=== PATIENT | female | born 1945 | race Caucasian/White ===

== ENCOUNTER → 2018-05-06 | Outpatient (CLI) | payer MEDICARE, OTHER ==
--- NOTE | 2018-05-06 11:32 | RAD ---
EXAM: Chest, 2 views. HISTORY: Cough. Dyspnea. COMPARISON: None. FINDINGS: Frontal and lateral views of the chest are obtained. There is no infiltrate, pleural effusion or pneumothorax. The heart is normal in size. There is a moderate hiatal hernia. IMPRESSION: No acute pulmonary finding. Electronically signed by: Kandace Tinoco MD (05/06/2018 11:28 AM) [id number]
--- NOTE | 2018-05-06 16:33 | RAD ---
DATE: 05/06/2018 EXAM: MAMMO CHERIE SCREENING BILATERAL HISTORY: Routine screening COMPARISON: 10/19/2014 This study was interpreted with the benefit of Computerized Aided Detection (CAD). The breast parenchyma is heterogeneously dense, which could reduce sensitivity of mammography. Breast parenchyma level C. FINDINGS: 2-D and 3-D tomosynthesis imaging was performed in CC and MLO projections. There is a cluster of microcalcifications in the posterolateral aspect of the right breast which appears to be related to a small elongated ill-defined breast opacity. These calcifications have progressed since previous studies. No other new or enlarging breast densities are seen. Stable benign-appearing lymph node type densities are present in the axillary regions. IMPRESSION: Clustered right breast microcalcifications as described above. Diagnostic mammograms to include spot compression and straight mediolateral views, probably followed by targeted breast ultrasound is suggested for further evaluation. BI-RADS CATEGORY: 0 INCOMPLETE: NEEDS ADDITIONAL IMAGING EVALUATION AND/OR PRIOR MAMMOGRAMS FOR COMPARISON. RECOMMENDED FOLLOW-UP: ADD ADDITIONAL IMAGING PQRS compliance statement: Patient information was entered into a reminder system with a target due date for the next mammogram. Mammography is a sensitive method for finding small breast cancers, but it does not detect them all and is not a substitute for careful clinical examination. A negative mammogram does not negate a clinically suspicious finding and should not result in delay in biopsying a clinically suspicious abnormality. "Our facility is accredited by the [employer] Mammography Program."
== END | disposition home or self-care (01) ==
LOC: MAMMO 10:45
PROVIDERS: ATTEND Family Medicine
DX: Z12.31 Encounter for screening mammogram for malignant neoplasm of breast (principal); K44.9 Diaphragmatic hernia without obstruction or gangrene
CPT/HCPCS: 71046; 77063; 77067

== ENCOUNTER → 2018-05-12 | Outpatient (CLI) | payer MEDICARE, OTHER ==
--- NOTE | 2018-05-12 15:48 | RAD ---
DATE: 05/12/2018 EXAM: DIGITAL DIAGNOSTIC RT, BREAST RIGHT HISTORY: Suspicious screening study COMPARISON: 05/06/2018, 10/19/2014 This study was interpreted with the benefit of Computerized Aided Detection (CAD). The breast parenchyma is heterogeneously dense, which could reduce sensitivity of mammography. Breast parenchyma level C. FINDINGS: Additional views of the right breast again demonstrate a cluster of microcalcifications related to an elongated density in the posterolateral aspect of the right breast at approximately the 10:00 location. The calcifications are pleomorphic with multiple irregular granular type calcifications as well as several coarser calcifications. The underlying soft tissue opacity measures approximately 5 x 15 mm. Right breast ultrasound, 05/12/2018: A targeted ultrasound exam of the upper outer quadrant of the right breast was performed. The nodule with calcifications seen on the mammograms could not be visualized sonographically. No mass or abnormal fluid collection was identified in the upper outer quadrant. IMPRESSION: Suspicious right breast microcalcifications which appear to be related to a small nodule, with no sonographic correlated evident. Stereotactic biopsy is suggested for further evaluation. Note: The biochemistry technologist notified the patient of the recommendation for biopsy at the time of the exam. The patient will follow-up with the ordering physician. BI-RADS CATEGORY: 4 SUSPICIOUS ABNORMALITY- BIOPSY SHOULD BE CONSIDERED RECOMMENDED FOLLOW-UP: BIO BIOPSY RECOMMENDED PQRS compliance statement: Patient information was entered into a reminder system with a target due date for the next mammogram. Mammography is a sensitive method for finding small breast cancers, but it does not detect them all and is not a substitute for careful clinical examination. A negative mammogram does not negate a clinically suspicious finding and should not result in delay in biopsying a clinically suspicious abnormality. "Our facility is accredited by the [employer] Mammography Program."
== END | disposition home or self-care (01) ==
LOC: MAMMO 13:53
PROVIDERS: ATTEND Family Medicine
DX: R92.8 Other abnormal and inconclusive findings on diagnostic imaging of breast (principal)
CPT/HCPCS: 76641; 77065

== ENCOUNTER → 2018-07-01 | Outpatient (CLI) | payer MEDICARE ==
[2018-07-02 16:24] LABS: FREE T4 0.92 ng/dL (0.76-1.46); THYROID STIM HORMONE (TSH) 2.017 uIU/mL (0.358-3.740)
== END | disposition home or self-care (01) ==
LOC: LAB 13:05
PROVIDERS: ATTEND Otolaryngology
DX: E04.1 Nontoxic single thyroid nodule (principal)
CPT/HCPCS: 84439; 84443

== ENCOUNTER → 2021-01-31 | Outpatient (CLI) | payer MEDICARE ==
[~2021-01-31] MED LIST: IOHEXOL 300 MG/ML 75 ML VIAL. IV ONE
--- NOTE | 2021-02-01 10:02 | RAD ---
CT THORAX W History: Lung nodules, reactive airway disease, productive cough, hemoptysis. Comparison: CT chest 06/23/2018. Technique: CT of the chest with intravenous contrast. Findings: Pulmonary arteries: Normal caliber. No large or central pulmonary embolism. Aorta and great vessels: No aneurysm of the aortic arch or thoracic aorta is seen. Mild aortic athero sclerotic calcification. Tortuous proximal segments of the great vessels. Thyroid: No significant abnormalities. Mediastinum and ame: No mediastinal masses or adenopathy is seen. Esophagus: The visualized esophagus is normal. Heart: The heart is normal in size. There is no pericardial effusion. No significant coronary artery calcification. Trachea: The visualized tracheobronchial tree is normal. Lungs: No airspace consolidation. Stable right lower lobe pulmonary nodules measuring 4 mm (axial noman ge 60 and axial image 65). Pleural space: There is no pneumothorax or pleural effusion. Upper abdomen: Redemonstrated benign hepatic cysts. 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 Osseous structures and soft tissues: Degenerative changes of the spine. Mild retrolisthesis of T12 on L1. Impression: 1. No significant lung abnormality. 2. Stable small right lower lobe pulmonary nodules. No follow-up required. 3. Incidental abdominal findings including stable splenic artery aneurysm measuring 1.8 cm and 3.2 c m duodenal diverticulum. ------ Exposure: One or more of the following individualized dose reduction techniques were utilized for thi s examination: 1. Automated exposure control 2. Adjustment of the mA and/or kV according to patient size 3. Use of iterative reconstruction technique. Electronically signed by: Gordon Gooden MD (02/01/2021 9:59 AM) [facility]
== END ==
LOC: CT 12:38
PROVIDERS: ATTEND Internal Medicine Pulmonary Disease
DX: R91.8 Other nonspecific abnormal finding of lung field (principal); K57.10 Diverticulosis of small intestine without perforation or abscess without bleeding; I72.8 Aneurysm of other specified arteries
CPT/HCPCS: 71260; Q9967